=== PATIENT | female | born 1985 | race Two or more races ===

== ENCOUNTER 2019-09-14 13:11 | Inpatient (IN) | payer MEDICARE, OTHER ==
[~2019-09-14] VITALS: Ht 149.9 cm; Wt 103.6 kg
[2019-09-14] MEDS ORDERED: ASPirin 81 mg TAB PO ONE (14:45)
[2019-09-14] MEDS ORDERED: LORazepam 0.5 MG TAB PO ONE (15:15)
[2019-09-14 15:31] LABS: Basophils # (auto) 0 uL; Basophils % (auto) 0.5 % (0.0-2.0); Eosinophils # (auto) 0 uL; Eosinophils % (auto) 0.3 % (0.0-7.0); Lymphocytes # (auto) 2.1 uL; Monocytes # (auto) 0.3 uL; Nucleated Red Blood Cells % 0.1 %
[2019-09-14 15:32] LABS: Calcium 8.5 mg/dL (8.5-10.1); Potassium 3.5 mmol/L (3.5-5.1)
[2019-09-14 15:33] LABS: Hematocrit 30.7 % (36.0-46.0); Hemoglobin 9.9 g/dL (12.2-16.2); Lymphocytes % (auto) 27.7 % (10.0-50.0); Mean Corpuscular Hemoglobin 25.9 pg (28.0-32.0); Mean Corpuscular Hgb Conc. 32.4 g/dL (32.0-36.0); Monocytes % (auto) 3.9 % (0.0-12.0); Neutrophils % (auto) 67.6 % (37.0-80.0); Platelet Count (auto) 272 10^3/uL (140-450); Red Blood Cells 3.83 10^6/uL (4.0-5.20); Red Cell Distribution Width 17.3 % (11.8-14.3); White Blood Cell 7.5 10^3/uL (4.4-10.8)
[2019-09-14 15:40] LABS: Albumin 3.3 g/dL (3.4-5.0); BUN/Creatinine Ratio 12.1; Bilirubin, Total 0.4 mg/dL (0.2-1.0); Total Protein 7.7 g/dL (6.4-8.2)
[2019-09-14] MEDS ORDERED: ENOXAPARIN SOD 120 MG/0.8 ML SYRINGE SC ONE (16:30)
[2019-09-14] MEDS ORDERED: HEPARIN SODIUM (PORCINE) 5000 UNITS/ML 1ML VIAL IV ONE (17:15)
[2019-09-14] MEDS ORDERED: AMIT PO (18:30)
[2019-09-14] MEDS ORDERED: TRAM-711 PO (18:30)
[2019-09-14] MEDS ORDERED: AMIT10TA6 PO (18:30)
[2019-09-14] MEDS ORDERED: MORPHINE SULF INJ 2 MG/ML SYRINGE 1ML IV PRN ×2 (18:30→19:00)
[2019-09-14] MEDS ORDERED: GABA-339 PO (18:30)
[2019-09-14] MEDS ORDERED: NITROGLYCERIN 0.4 MG SL TAB SL PRN (18:30)
[2019-09-14] MEDS ORDERED: PAR20T PO (18:30)
[2019-09-14] MEDS ORDERED: ACETAMINOPHEN 500 MG TAB PO PRN (19:00)
[2019-09-14] MEDS ORDERED: ALBUTEROL SULF 2.5 MG/0.5ML(0.5%) NEB SOLN NEB PRN (19:00)
[2019-09-14] MEDS ORDERED: IPRATROPIUM BROM 0.5 MG/2.5ML INH SOL NEB PRN (19:00)
[2019-09-14 21:12] LABS: Urine Bacteria NONE SEEN /hpf (None Seen); Urine Blood Negative /uL (Negative); Urine Mucus FEW (None Seen); Urine Specific Gravity 1.018 (1.001-1.035); Urine WBC <1 /hpf (0 - 5)
[2019-09-14] MEDS ORDERED: AMITRIPTYLINE HCL 10 MG TAB PO SCH (22:00)
[2019-09-14 22:08] VITALS: BP 119/77
[2019-09-14 22:24] VITALS: BP 157/92
[2019-09-15] MEDS: GABAPENTIN 300 MG CAP PO SCH ×4 (01:10→21:55)
[2019-09-15] MEDS: AMITRIPTYLINE HCL 10 MG TAB PO SCH ×2 (01:10→21:55)
[2019-09-15] MEDS: traMADol HCL 50 MG TAB PO PRN ×4 (01:11→21:56)
[2019-09-15 05:17] VITALS: BP 114/72
[2019-09-15 09:00] VITALS: BP 116/70
[2019-09-15] MEDS: FLUoxetine HCL 20 MG CAP PO SCH (09:32)
[2019-09-15] MEDS ORDERED: ENOXAPARIN SOD 40 MG/0.4 ML SYRINGE SC SCH (10:00)
[2019-09-15] MEDS ORDERED: IOHEXOL 350 MG/ML 100ML IJ ONE (11:45)
[2019-09-15 12:19] LABS: Cholesterol 148 mg/dL (< 200); HDL Cholesterol 38 mg/dL (40-59); LDL Cholesterol 90 mg/dL (< 100); Triglycerides 184 mg/dL (< 150)
[2019-09-15 13:00] VITALS: BP 126/73
[2019-09-15] MEDS ORDERED: ENOXAPARIN SOD 80 MG/0.8ML SYRINGE SC ONE (13:15)
[2019-09-15] MEDS ORDERED: AMIT PO (13:29)
[2019-09-15] MEDS ORDERED: AMITRIPTYLINE HCL 10 MG TAB PO PRN (13:30)
[2019-09-15 13:57] LABS: INR 1.02 (0.9-1.15); Partial Thromboplastin Time 32.1 sec (23.64-32.05)
[2019-09-15 17:00] VITALS: BP 131/70
[2019-09-15] MEDS ORDERED: WARFARIN SODIUM 10 MG TAB PO ONE (17:00)
[2019-09-15] MEDS ORDERED: POTASSIUM CHLORIDE 8 MEQ TAB PO ONE (17:30)
[2019-09-15] MEDS ORDERED: FUROSEMIDE 20 MG TAB PO ONE (17:30)
[2019-09-15] MEDS ORDERED: ONDANSETRON HCL 4 MG/2 ML VIAL IV PRN (17:30)
[2019-09-15] MEDS: ENOXAPARIN SOD 120 MG/0.8 ML SYRINGE SC SCH (21:57)
[2019-09-15 22:00] VITALS: BP 130/83
[2019-09-16 05:05] VITALS: BP 120/60
[2019-09-16] MEDS: traMADol HCL 50 MG TAB PO PRN ×2 (05:59→19:52)
[2019-09-16] MEDS: GABAPENTIN 300 MG CAP PO SCH ×3 (05:59→21:21)
[2019-09-16] MEDS: FLUoxetine HCL 20 MG CAP PO SCH (09:57)
[2019-09-16] MEDS: ENOXAPARIN SOD 120 MG/0.8 ML SYRINGE SC SCH ×2 (09:57→21:23)
[2019-09-16] MEDS: POTASSIUM CHLORIDE 8 MEQ TAB PO SCH (09:57)
[2019-09-16] MEDS: FUROSEMIDE 20 MG TAB PO SCH (09:58)
[2019-09-16 11:39] LABS: Basophils # (auto) 0 uL; Eosinophils # (auto) 0.1 uL; Monocytes # (auto) 0.4 uL
[2019-09-16 11:41] LABS: Basophils % (auto) 0.3 % (0.0-2.0); Eosinophils % (auto) 0.9 % (0.0-7.0); Hematocrit 30.8 % (36.0-46.0); Hemoglobin 10.4 g/dL (12.2-16.2); Lymphocytes # (auto) 1.7 uL; Lymphocytes % (auto) 24.5 % (10.0-50.0); Mean Corpuscular Hemoglobin 26.4 pg (28.0-32.0); Mean Corpuscular Hgb Conc. 33.7 g/dL (32.0-36.0); Mean Corpuscular Volume 78.3 fL (80.0-100.0); Monocytes % (auto) 5.1 % (0.0-12.0); Neutrophils # (auto) 4.8 uL; Neutrophils % (auto) 69.2 % (37.0-80.0); Platelet Count (auto) 288 10^3/uL (140-450); Red Blood Cells 3.94 10^6/uL (4.0-5.20); Red Cell Distribution Width 17.4 % (11.8-14.3)
[2019-09-16 11:53] LABS: INR 1.2 (0.9-1.15); Partial Thromboplastin Time 40.7 sec (23.64-32.05)
[2019-09-16 12:01] LABS: Calcium 8.5 mg/dL (8.5-10.1); Potassium 3.5 mmol/L (3.5-5.1)
[2019-09-16] MEDS ORDERED: WARFARIN SODIUM 5 MG TAB PO ONE (17:00)
[2019-09-16] MEDS: AMITRIPTYLINE HCL 10 MG TAB PO SCH (21:22)
[2019-09-17 05:08] VITALS: BP 100/48
[2019-09-17 06:03] LABS: Basophils # (auto) 0 uL; Basophils % (auto) 0.4 % (0.0-2.0); Eosinophils # (auto) 0.1 uL; Hemoglobin 10.6 g/dL (12.2-16.2); Monocytes # (auto) 0.4 uL; White Blood Cell 6.7 10^3/uL (4.4-10.8)
[2019-09-17 06:06] LABS: Eosinophils % (auto) 1.4 % (0.0-7.0); Hematocrit 32.6 % (36.0-46.0); Lymphocytes # (auto) 2.7 uL; Lymphocytes % (auto) 40.8 % (10.0-50.0); Mean Corpuscular Hemoglobin 25.5 pg (28.0-32.0); Mean Corpuscular Hgb Conc. 32.6 g/dL (32.0-36.0); Mean Corpuscular Volume 78.4 fL (80.0-100.0); Monocytes % (auto) 5.3 % (0.0-12.0); Neutrophils # (auto) 3.5 uL; Neutrophils % (auto) 52.1 % (37.0-80.0); Platelet Count (auto) 290 10^3/uL (140-450); Red Blood Cells 4.16 10^6/uL (4.0-5.20); Red Cell Distribution Width 17.5 % (11.8-14.3)
[2019-09-17 06:17] LABS: INR 1.47 (0.9-1.15); Partial Thromboplastin Time 45.8 sec (23.64-32.05)
[2019-09-17 06:22] LABS: Potassium 3.6 mmol/L (3.5-5.1)
[2019-09-17] MEDS: traMADol HCL 50 MG TAB PO PRN ×2 (06:24→21:29)
[2019-09-17] MEDS: GABAPENTIN 300 MG CAP PO SCH ×3 (06:24→21:28)
[2019-09-17 06:34] LABS: BUN/Creatinine Ratio 8.8; Calcium 8.4 mg/dL (8.5-10.1)
[2019-09-17] MEDS ORDERED: ADENOSINE 88 MG in GIVE UN-DILUTED 0 ML IV STA (08:16)
[2019-09-17 09:00] VITALS: BP 107/53
[2019-09-17 13:00] VITALS: BP 120/67
[2019-09-17] MEDS: APIXABAN 5 MG TAB PO SCH ×4 (14:06→21:28)
[2019-09-17] MEDS: FLUoxetine HCL 20 MG CAP PO SCH (14:07)
[2019-09-17] MEDS: POTASSIUM CHLORIDE 8 MEQ TAB PO SCH (14:07)
[2019-09-17] MEDS: FUROSEMIDE 20 MG TAB PO SCH (14:11)
[2019-09-17 17:00] VITALS: BP 123/73
[2019-09-17] MEDS: AMITRIPTYLINE HCL 10 MG TAB PO SCH (21:27)
[2019-09-17 22:00] VITALS: BP 115/61
[2019-09-18 05:00] VITALS: BP 94/60
[2019-09-18] MEDS: GABAPENTIN 300 MG CAP PO SCH ×3 (06:38→21:57)
[2019-09-18 09:00] VITALS: BP 112/64
[2019-09-18] MEDS: FLUoxetine HCL 20 MG CAP PO SCH (09:37)
[2019-09-18] MEDS: FUROSEMIDE 20 MG TAB PO SCH (09:38)
[2019-09-18] MEDS: POTASSIUM CHLORIDE 8 MEQ TAB PO SCH (09:38)
[2019-09-18] MEDS: APIXABAN 5 MG TAB PO SCH ×2 (09:38)
[2019-09-18 10:01] LABS: Basophils # (auto) 0 uL; Eosinophils # (auto) 0.1 uL; Hemoglobin 10.7 g/dL (12.2-16.2); Lymphocytes # (auto) 1.8 uL; Mean Corpuscular Hemoglobin 25.7 pg (28.0-32.0); Monocytes # (auto) 0.4 uL; White Blood Cell 6.5 10^3/uL (4.4-10.8)
[2019-09-18 10:04] LABS: Basophils % (auto) 0.4 % (0.0-2.0); Eosinophils % (auto) 0.9 % (0.0-7.0); Hematocrit 32.8 % (36.0-46.0); Lymphocytes % (auto) 27.6 % (10.0-50.0); Mean Corpuscular Hgb Conc. 32.7 g/dL (32.0-36.0); Mean Corpuscular Volume 78.6 fL (80.0-100.0); Monocytes % (auto) 6.1 % (0.0-12.0); Neutrophils # (auto) 4.2 uL; Platelet Count (auto) 278 10^3/uL (140-450); Red Blood Cells 4.17 10^6/uL (4.0-5.20)
[2019-09-18 10:25] LABS: Anion Gap 6 (5-15); BUN/Creatinine Ratio 11.6; Blood Urea Nitrogen 8 mg/dL (7-18); Calcium 8.7 mg/dL (8.5-10.1); Carbon Dioxide 27 mmol/L (21-32); Chloride 105 mmol/L (98-107); GFR African American 125 mL/min; GFR Non-African American 103 mL/min; Glucose 129 mg/dL (74-106); Potassium 3.8 mmol/L (3.5-5.1); Sodium 138 mmol/L (136-145)
[2019-09-18 12:22] VITALS: BP 112/64
[2019-09-18 13:00] VITALS: BP 123/74
[2019-09-18 17:00] VITALS: BP_SYST 129; BP_SYST 141; BP_DIAS 79; BP_DIAS 82
[2019-09-18 21:45] VITALS: BP 93/51
[2019-09-18] MEDS: AMITRIPTYLINE HCL 10 MG TAB PO SCH (21:56)
[2019-09-18] MEDS ORDERED: APIXABAN 5 MG TAB PO ONE (22:00)
[2019-09-19 01:48] VITALS: BP 93/51
[2019-09-19] MEDS: GABAPENTIN 300 MG CAP PO SCH ×2 (06:57→14:02)
[2019-09-19 08:00] VITALS: BP 112/64
[2019-09-19 09:00] VITALS: BP 136/75
[2019-09-19] MEDS: POTASSIUM CHLORIDE 8 MEQ TAB PO SCH (09:27)
[2019-09-19] MEDS: FUROSEMIDE 20 MG TAB PO SCH (09:28)
[2019-09-19] MEDS: FLUoxetine HCL 20 MG CAP PO SCH (09:28)
[2019-09-19] MEDS ORDERED: DOCUSATE SOD 100 MG CAP PO SCH (10:00)
[2019-09-19] MEDS ORDERED: APIXABAN 5 MG TAB PO SCH (10:00)
[2019-09-19 12:45] VITALS: BP 115/82
[2019-09-24] MEDS ORDERED: APIXABAN 5 MG TAB PO SCH (10:00)
== END 2019-09-19 16:00 | disposition home or self-care (01) | DRG 175 ==
LOC: ER 13:19 → TELE 13:20 → TELE-EAST 22:31
PROVIDERS: ADMIT Nurse Practitioner Acute Care; ATTEND Internal Medicine
DX: I26.99 Other pulmonary embolism without acute cor pulmonale (principal); I21.A1 Myocardial infarction type 2; I50.43 Acute on chronic combined systolic (congestive) and diastolic (congestive) heart failure; E44.1 Mild protein-calorie malnutrition; G90.50 Complex regional pain syndrome I, unspecified; Z68.42 Body mass index [BMI] 45.0-49.9, adult; E66.01 Morbid (severe) obesity due to excess calories; Z99.3 Dependence on wheelchair; Z74.01 Bed confinement status; K76.0 Fatty (change of) liver, not elsewhere classified; D63.8 Anemia in other chronic diseases classified elsewhere; F41.9 Anxiety disorder, unspecified; Z82.3 Family history of stroke; Z82.49 Family history of ischemic heart disease and other diseases of the circulatory system; Z83.3 Family history of diabetes mellitus; Z79.01 Long term (current) use of anticoagulants; F32.9 Major depressive disorder, single episode, unspecified
CPT/HCPCS: 36415; 71045; 71275; 78452; 80048; 80053; 80061; 81001; 81025; 83735; 83880; 84443; 84484; 85025; 85379; 85610; 85730; 86141; 87045; 87427; 87493; 93005; 93017; 93306; 93970; 96374; G0378; J0153; J2405

== ENCOUNTER 2021-06-02 19:48 | Emergency (ER) | payer MEDICARE, MEDICAID ==
[~2021-06-02] VITALS: Ht 149.9 cm; Wt 108.9 kg
[~2021-06-02 19:48] MED LIST: AMIT10TA8 PO; GABA-339 PO; PAR20T PO; TRAM-711 PO
[2021-06-02 21:51] LABS: Basophils # (auto) 0 10 ^3/uL (0-0.2); Eosinophils # (auto) 0 10 ^3/uL (0-0.8); Lymphocytes # (auto) 1.9 10 ^3/uL (0.4-5.4)
[2021-06-02 21:53] LABS: Basophils % (auto) 0.3 % (0.0-2.0); Hematocrit 33.1 % (36.0-46.0); Hemoglobin 10.3 g/dL (12.2-16.2); Mean Corpuscular Hemoglobin 23.7 pg (28.0-32.0); Mean Corpuscular Hgb Conc. 31.3 g/dL (32.0-36.0); Mean Corpuscular Volume 75.8 fL (80.0-100.0); Monocytes # (auto) 0.5 10 ^3/uL (0-1.3); Monocytes % (auto) 4.7 % (0.0-12.0); Neutrophils # (auto) 8.5 10 ^3/uL (1.6-8.6); Red Blood Cells 4.37 10^6/uL (4.0-5.20); Red Cell Distribution Width 17.9 % (11.8-14.3); White Blood Cell 10.9 10^3/uL (4.4-10.8)
[2021-06-02 22:14] LABS: Albumin 3.7 g/dL (3.4-5.0); Anion Gap 11 (5-15); Blood Urea Nitrogen 9 mg/dL (7-18); Calcium 9.1 mg/dL (8.5-10.1); Carbon Dioxide 20 mmol/L (21-32); Chloride 109 mmol/L (98-107); Glucose 100 mg/dL (74-106); Potassium 3.1 mmol/L (3.5-5.1); Sodium 140 mmol/L (136-145)
[2021-06-02 22:15] LABS: Alanine Aminotransferase 22 U/L (13-56); Aspartate Aminotransferase 17 U/L (15-37); BUN/Creatinine Ratio 13.6; GFR African American 130 mL/min; GFR Non-African American 107 mL/min
[2021-06-02 22:18] LABS: Alkaline Phosphatase 77 U/L (45-117); Bilirubin, Total 0.6 mg/dL (0.2-1.0); Total Protein 8.3 g/dL (6.4-8.2)
[2021-06-02 23:09] VITALS: BP 130/72
[2021-06-03] MEDS ORDERED: ACETAMINOPHEN 325 MG TAB PO ONE (00:15)
== END 2021-06-03 00:44 | disposition home or self-care (01) ==
LOC: ER 19:50
DX: S16.1XXA Strain of muscle, fascia and tendon at neck level, initial encounter (principal); S09.8XXA Other specified injuries of head, initial encounter; R55 Syncope and collapse; Z79.899 Other long term (current) drug therapy; W18.39XA Other fall on same level, initial encounter; Y93.89 Activity, other specified; Y92.89 Other specified places as the place of occurrence of the external cause; Y99.8 Other external cause status
CPT/HCPCS: 36415; 70450; 72125; 80053; 84484; 85025; 93005

== ENCOUNTER 2021-07-17 10:16 | Emergency (ER) | payer OTHER, MEDICAID ==
[~2021-07-17] VITALS: Ht 149.9 cm; Wt 117.9 kg
[2021-07-17] MEDS ORDERED: SODIUM CHLORIDE 0.9% 500 ML IV ONE (11:00)
[2021-07-17 12:40] LABS: Basophils # (auto) 0 10 ^3/uL (0-0.2); Eosinophils # (auto) 0 10 ^3/uL (0-0.8); Hematocrit 32.1 % (36.0-46.0); Hemoglobin 10.3 g/dL (12.2-16.2); Lymphocytes # (auto) 1.5 10 ^3/uL (0.4-5.4); Monocytes # (auto) 0.4 10 ^3/uL (0-1.3); Monocytes % (auto) 4.7 % (0.0-12.0)
[2021-07-17 12:42] LABS: Basophils % (auto) 0.2 % (0.0-2.0); Eosinophils % (auto) 0.1 % (0.0-7.0); Lymphocytes % (auto) 15.9 % (10.0-50.0); Mean Corpuscular Hemoglobin 24.2 pg (28.0-32.0); Mean Corpuscular Hgb Conc. 32.2 g/dL (32.0-36.0); Mean Corpuscular Volume 75.1 fL (80.0-100.0); Neutrophils # (auto) 7.3 10 ^3/uL (1.6-8.6); Neutrophils % (auto) 79.1 % (37.0-80.0); Red Blood Cells 4.27 10^6/uL (4.0-5.20); Red Cell Distribution Width 18.3 % (11.8-14.3); White Blood Cell 9.3 10^3/uL (4.4-10.8)
[2021-07-17 12:54] LABS: Albumin 3.7 g/dL (3.4-5.0); Calcium 8.9 mg/dL (8.5-10.1); Potassium 3.3 mmol/L (3.5-5.1)
[2021-07-17 12:57] LABS: BUN/Creatinine Ratio 14.1; Total Protein 7.8 g/dL (6.4-8.2)
[2021-07-17 13:00] LABS: Urine Bacteria NONE SEEN /hpf (None Seen); Urine Blood Negative /uL (Negative); Urine Mucus MODERATE (None Seen); Urine Specific Gravity 1.022 (1.001-1.035); Urine WBC 3 /hpf (0 - 5)
[2021-07-17 20:53] VITALS: BP 127/57
== END 2021-07-17 20:53 | disposition home or self-care (01) ==
LOC: ER 10:16
DX: K80.20 Calculus of gallbladder without cholecystitis without obstruction (principal); R53.83 Other fatigue; Z20.822 Contact with and (suspected) exposure to COVID-19
CPT/HCPCS: 36415; 74176; 80053; 81001; 85025; 87426; 93005

== ENCOUNTER 2021-09-17 22:29 | Emergency (ER) | payer OTHER, MEDICAID ==
[~2021-09-17] VITALS: Ht 149.9 cm; Wt 84.8 kg
[2021-09-17 23:49] LABS: Basophils # (auto) 0 10 ^3/uL (0-0.2); Basophils % (auto) 0.4 % (0.0-2.0); Eosinophils # (auto) 0 10 ^3/uL (0-0.8); Hemoglobin 10.1 g/dL (12.2-16.2); Mean Corpuscular Hemoglobin 24.3 pg (28.0-32.0); Mean Corpuscular Hgb Conc. 31.8 g/dL (32.0-36.0); Monocytes # (auto) 0.4 10 ^3/uL (0-1.3); Red Cell Distribution Width 18.3 % (11.8-14.3)
[2021-09-17 23:50] LABS: Eosinophils % (auto) 0.1 % (0.0-7.0); Hematocrit 31.9 % (36.0-46.0); Lymphocytes % (auto) 22.8 % (10.0-50.0); Mean Corpuscular Volume 76.4 fL (80.0-100.0); Monocytes % (auto) 4.2 % (0.0-12.0); Neutrophils # (auto) 6.5 10 ^3/uL (1.6-8.6); Neutrophils % (auto) 72.5 % (37.0-80.0); Red Blood Cells 4.17 10^6/uL (4.0-5.20)
[2021-09-18 00:05] LABS: Albumin 3.7 g/dL (3.4-5.0); Calcium 8.9 mg/dL (8.5-10.1)
[2021-09-18 00:07] LABS: BUN/Creatinine Ratio 17.2
[2021-09-18 00:09] LABS: Bilirubin, Total 0.6 mg/dL (0.2-1.0); Total Protein 7.7 g/dL (6.4-8.2)
[2021-09-18 02:05] VITALS: BP 114/82
== END 2021-09-18 02:08 | disposition home or self-care (01) ==
LOC: ER 22:32
DX: R55 Syncope and collapse (principal); R42 Dizziness and giddiness
CPT/HCPCS: 36415; 80053; 85025; 93005